=== PATIENT | female | born 1940 | race Two or more races ===

== ENCOUNTER 2019-05-02 11:58 | Emergency (ER) | payer OTHER ==
[~2019-05-02] VITALS: Ht 157.5 cm; Wt 88.5 kg
[2019-05-02] MEDS ORDERED: TOPROL XL50 M1 PO (13:19)
[2019-05-02] MEDS ORDERED: ISOSORBIDE DINI30 MG (13:20)
[2019-05-02] MEDS ORDERED: COZAAR100 MG PO (13:20)
[2019-05-02] MEDS ORDERED: LASIX20 MG PO (13:21)
[2019-05-02] MEDS ORDERED: CAROSPIR25 MG/5 ML (13:22)
[2019-05-02] MEDS ORDERED: CALCI-CHEW500 MG (13:22)
[2019-05-02] MEDS ORDERED: VITAMIN D32000 UNI2 (13:23)
== END 2019-05-02 16:30 | disposition home or self-care (01) ==
LOC: ER 11:58
DX: S40.012A Contusion of left shoulder, initial encounter (principal); S40.022A Contusion of left upper arm, initial encounter; S60.222A Contusion of left hand, initial encounter; W18.39XA Other fall on same level, initial encounter; Y93.89 Activity, other specified; Y92.098 Other place in other non-institutional residence as the place of occurrence of the external cause; Y99.8 Other external cause status